=== PATIENT | female | born 1970 | race Caucasian/White ===

== ENCOUNTER 2022-07-21 10:34 | Day surgery (SDC) | payer BC ==
[2022-07-21] VITALS (9 sets, daily range): BP systolic 120–139; BP diastolic 68–104
[~2022-07-21] VITALS: Ht 157.5 cm; Wt 77.1 kg
[~2022-07-21 10:34] MED LIST: BACL10TA2 PO; ESTR2TAB6 PO; HYDR-3968 PO; OMEP40CA21 PO; ceFOXitin 2GM-NS 100mL ADDvant 100 ML IV ONE; famotidine 20mg tablet PO ONE; ringers solution, lacted 1,000 ML IV SCH
[2022-07-21] MEDS ORDERED: BUPIVAcaine/PF 2.5 mg/ml (0.25%) 30ml vial ONE (13:43)
[2022-07-21] MEDS ORDERED: dexamethasone sod phosphate 10mg/ml inj ONE (13:57)
[2022-07-21] MEDS ORDERED: neostigmine methylsulfate 1 MG/ML 10ml vial ONE (13:57)
[2022-07-21] MEDS ORDERED: sevoflurane 250ml liquid IH ONE (13:57)
[2022-07-21] MEDS ORDERED: glycopyrrolate 0.2mg/ml inj ONE (13:57)
[2022-07-21] MEDS ORDERED: midazolam 1 mg/ML 2ml injection ONE (13:58)
[2022-07-21] MEDS ORDERED: fentaNYL/PF 50MCG/1 ML 2ML syringe ONE (13:58)
[2022-07-21] MEDS ORDERED: rocuronium 10mg/ml inj IV ONE (14:05)
[2022-07-21] MEDS ORDERED: propofol inj 20 ML IV ONE (14:05)
[2022-07-21] MEDS ORDERED: LIDOcaine 2% (20mg/ml) 5ml vial ONE (14:05)
[2022-07-21] MEDS ORDERED: ondansetron/PF 4mg/2ml inj ONE (14:06)
[2022-07-21] MEDS ORDERED: hydrALAZINE 20mg/ml inj. IV PRN (14:20)
[2022-07-21] MEDS ORDERED: labetalol 20mg/4ml (5mg/ml) syringe IV PRN (14:20)
[2022-07-21] MEDS ORDERED: fentaNYL/PF 50MCG/1 ML 2ML syringe IV PRN ×2 (14:20)
[2022-07-21] MEDS ORDERED: ondansetron/PF 4mg/2ml inj IV PRN (14:20)
[2022-07-21] MEDS ORDERED: ringers solution, lacted 1,000 ML IV SCH (14:20)
[2022-07-21] MEDS ORDERED: HYDROmorphone/PF 0.2 MG/ML SYRINGE IV PRN (14:20)
[2022-07-21] MEDS ORDERED: BUPIVAcaine/PF 2.5mg/ml (0.25%) 10ml vial IJ ONE (14:23)
[2022-07-21] MEDS ORDERED: labetalol 20mg/4ml (5mg/ml) syringe IV ONE (14:36)
--- NOTE | 2022-07-21 14:55 | NUR ---
Received from OR via [facility], accompanied by Anesthesiologist DR CARVER and report given by Anesthesiologist AND [employer]PERINTENDENT. PT PAINFUL, DR CARVER GAVE PT PAIN MEDICAITON. ABDOMEN W/3 LAP SITES W/DERMABOND CDI. Addendum: 07/21/22 at 1518 by Eliza Teran RN Amended: Links added.
[2022-07-21] MEDS: HYDROmorphone/PF 0.2 MG/ML SYRINGE IV PRN ×2 (15:02→15:40)
--- NOTE | 2022-07-21 16:35 | NUR ---
PT UP AND AMBULATING SAFELY, VOIDED X 1. PT STATES SHE IS COMFORTABLE. D/C INSTRUCTIONS GIVEN AND GONE OVER W/PT WHO VERBALIZED UNDERSTANDING. PT D/CD TO HOME VIA W/C TO PRIVATE VEHICLE W/O INCIDENT. Addendum: 07/21/22 at 1728 by Eliza Teran RN Amended: Links added.
== END 2022-07-21 16:35 | disposition home or self-care (01) ==
LOC: PAS 10:34
PROVIDERS: ATTEND Surgery
DX: K80.12 Calculus of gallbladder with acute and chronic cholecystitis without obstruction (principal); K21.9 Gastro-esophageal reflux disease without esophagitis; F41.9 Anxiety disorder, unspecified; M50.30 Other cervical disc degeneration, unspecified cervical region; M48.02 Spinal stenosis, cervical region; Z90.710 Acquired absence of both cervix and uterus; Z98.1 Arthrodesis status; Z79.899 Other long term (current) drug therapy; Z88.5 Allergy status to narcotic agent; Z87.891 Personal history of nicotine dependence; Z86.16 Personal history of COVID-19
CPT/HCPCS: 47562; 82948; 93005; J0694; J1100; J1170; J2250; J2405; J2704; J2710; J3010; J3490; J7030; J7120; Z7506; Z7512; A4215; A4618; A7000

== ENCOUNTER 2022-09-14 12:30 | Emergency (ER) | payer BC ==
[~2022-09-14] VITALS: Ht 157.5 cm; Wt 79.0 kg
[~2022-09-14 12:30] MED LIST changes: -ceFOXitin 2GM-NS 100mL ADDvant 100 ML IV ONE; -famotidine 20mg tablet PO ONE; -ringers solution, lacted 1,000 ML IV SCH
[2022-09-14 13:13] LABS: BASOPHILS % (AUTO) 0.7 % (0-1); EOSINOPHILS # (AUTO) 0.1 X10'3 (0-0.9); EOSINOPHILS % (AUTO) 1.4 % (0-6); HEMATOCRIT 36.2 % (35.0-45.0); HEMOGLOBIN 12.3 g/dl (12.0-16.0); LYMPHOCYTES # (AUTO) 2.2 X10'3 (1.1-4.8); MEAN CORPUSCULAR HEMOGLOBIN 30.3 PG (27.0-31.0); MEAN CORPUSCULAR HGB CONC 33.8 g/dL (33.0-36.5); MEAN CORPUSCULAR VOLUME 89.5 FL (78-98); MEAN PLATELET VOLUME 8.4 FL (7.4-10.4); MONOCYTES # (AUTO) 0.4 X10'3 (0-0.9); NEUTROPHILS % (AUTO) 52.9 % (42-75); PLATELET COUNT 287 X10'3 (140-440); RED BLOOD COUNT 4.05 X10'6 (4.20-5.60); RED CELL DISTRIBUTION WIDTH 13.2 % (11.5-14.5); WHITE BLOOD COUNT 5.7 X10'3 (4.5-11.0)
[2022-09-14 13:17] LABS: ALANINE AMINOTRANSFERASE 24 U/L (12-78); ALBUMIN 4.3 G/DL (3.4-5.0); ALBUMIN/GLOBULIN RATIO 1.2 (1.1-1.5); ALKALINE PHOSPHATASE 51 IU/L (46-116); ANION GAP 12 (8-16); ASPARTATE AMINO TRANSFERASE 23 U/L (10-37); BILIRUBIN,TOTAL 0.3 MG/DL (0.1-1.0); BLOOD UREA NITROGEN 15 MG/DL (7-18); BUN/CREATININE RATIO 21.7 (10.0-20.0); CALCIUM 8.8 MG/DL (8.5-10.1); CHLORIDE 101 MMOL/L (99-107); CREATININE 0.69 MG/DL (0.40-0.90); GLUCOSE 101 MG/DL (70-104); POTASSIUM 3.3 MMOL/L (3.5-5.1); SODIUM 139 MMOL/L (135-145); TOTAL CARBON DIOXIDE 25.9 MMOL/L (24-32); eGFR 89 ML/MIN
[2022-09-14 15:27] LABS: CLARITY,URINE CLEAR (Clear); COLOR,URINE STRAW (Yellow); GLUCOSE, URINE NEGATIVE (Neg); KETONES,URINE NEGATIVE (Neg); LEUKOCYTE ESTERASE ,URINE NEGATIVE (Neg); NITRITES, URINE NEGATIVE (Neg); OCCULT BLOOD,URINE NEGATIVE (Neg); PROTEIN,URINE NEGATIVE (Neg); UROBILINOGEN,URINE 0.2 E.U/dL (0.2-1.0)
[2022-09-14 15:33] LABS: UA COLLECTION TYPE CLN CATCH MIDSTREAM
[2022-09-14] MEDS ORDERED: meclizine 12.5mg tablet PO ONE (15:35)
[2022-09-14] MEDS ORDERED: normal saline 1000ML IV soln IVB ONE ×2 (15:35→17:55)
[2022-09-14] MEDS ORDERED: diphenhydrAMINE 50 mg/ml inj IV ONE (17:55)
[2022-09-14] MEDS ORDERED: ketorolac tromethamine 15mg/ml inj. IV ONE (17:55)
[2022-09-14] MEDS ORDERED: magnesium 2GM in 50ml NS 50 ML IV ONE (17:55)
[2022-09-14] MEDS ORDERED: proCHLORperazine 10 MG/2 ml inj IV ONE (17:55)
[2022-09-14 18:06] LABS: URINE AMPHETAMINE SCREEN NEGATIVE (Neg); URINE BARBITUATE SCREEN NEGATIVE (Neg); URINE BENZODIAZEPINES SCREEN NEGATIVE (Neg); URINE CANNABINOID SCREEN NEGATIVE (Neg); URINE COCAINE SCREEN NEGATIVE (Neg); URINE METHADONE SCREEN NEGATIVE (Neg); URINE OPIATE SCREEN POSITIVE (Neg); URINE PHENCYCLIDINE SCREEN NEGATIVE (Neg)
[2022-09-14] MEDS ORDERED: iohexol 350MG/ML 100ml bottle IV ONE (18:40)
--- NOTE | 2022-09-14 20:26 | NUR ---
relieving RN for break, pt c/o pain to IV in left AC, pain with NS flush, IV dc'd, cannula intact
[2022-09-14] MEDS ORDERED: MECL-226 PO (21:37)
[2022-09-14 21:49] VITALS: BP 128/67
== END 2022-09-14 21:53 | disposition home or self-care (01) ==
LOC: ER 12:30
DX: R42 Dizziness and giddiness (principal); R55 Syncope and collapse; R11.0 Nausea
CPT/HCPCS: 36415; 70450; 70496; 70498; 71045; 71275; 74174; 80053; 80305; 81003; 83880; 84484; 85025; 93005; 96361; 96365; 96366; 96375; 99285; J0780; J1200; J3475; J3490; J7030; J8597; Q9967